=== PATIENT | female | born 1975 | race Caucasian/White ===

== ENCOUNTER 2021-12-14 12:03 | Day surgery (SDC) | payer MEDICARE ==
[2021-12-14] MEDS: Lactated Ringers 1,000 ML IV SCH ×2 (12:30→21:08)
[2021-12-14] MEDS ORDERED: CLINDAMYCIN-D5W 900 MG/50 ML*** 900 MG/50 ML BAG IV SCH (12:30)
[2021-12-14 12:43] LABS: ALBUMIN 3.1 g/dL (3.5-5.0); ALKALINE PHOSPHATASE 75 U/L (38-126); ANION GAP 9.5 MEQ/L (5-15); BLOOD UREA NITROGEN 14 mg/dL (7-17); CHLORIDE 108 mmol/L (98-107); Calcium 8.4 mg/dL (8.4-10.2); Carbon Dioxide 26 mmol/L (22-30); Creatinine 1 0.68 mg/dL (0.52-1.04); EST GLOMERULAR FILTRATION RATE > 60.0 ML/MIN; Glucose 72 mg/dL (74-106); Potassium 3.5 mmol/L (3.5-5.1); SGOT/AST 40 U/L (14-36); SGPT/ALT 23 U/L (0-35); SODIUM 139 mmol/L (137-145)
[2021-12-14] MEDS ORDERED: DIPRIVAN 200 MG/20 ML IV ONE (13:00)
[2021-12-14] MEDS ORDERED: Zemuron 100 MG/10 ML ONE ×2 (13:00→15:46)
[2021-12-14] MEDS ORDERED: Versed 2 MG/2 ML Injection ONE (13:00)
[2021-12-14] MEDS ORDERED: Ephedrine Sulfate 50 MG/ML ONE ×2 (13:25→15:44)
[2021-12-14] MEDS ORDERED: Lactated Ringers 1,000 ML IV ONE (13:30)
[2021-12-14] MEDS ORDERED: Naropin 0.5% 30 ML VIAL ONE (16:49)
[2021-12-14] MEDS ORDERED: Marcaine 0.5%/Epinephrine 10 ML ONE (16:49)
[2021-12-14] MEDS ORDERED: Hydromorphone 1 mg/ml Injection ONE (19:20)
[2021-12-14] MEDS ORDERED: SUBLIMAZE 100 MCG/2 ML ONE (19:20)
[2021-12-14] MEDS ORDERED: TORAdol 30 mg Injection ONE (19:49)
[2021-12-15] MEDS: HYDROCODONE-ACETAMIN 10-325 MG PO PRN ×3 (03:10→12:11)
[2021-12-15] MEDS ORDERED: SYNTHROID 125 MCG PO SCH (07:00)
[2021-12-15] MEDS ORDERED: MOTRIN 600 MG PO PRN (07:34)
--- NOTE | 2021-12-15 09:21 | XRAY ---
Indication: Left foot modified Pena procedure, tibialis anterior tendon transfer, and gastrocnemius lengthening. Intraoperative fluoroscopy was provided for 2 minute 46 seconds. 23 digital spot images ultimately demonstrates fusion 1st MTP, 2nd metatarsal head America procedure, and fusion entire 2nd-4th phalanges all with intact hardware. Orthopedic button projects over 1st-2nd tarsometatarsal articulation. Correlate with intraoperative findings/report.
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
[2021-12-15] MEDS ORDERED: KEFLEX 500 MG PO SCH (10:00)
[2021-12-15] MEDS ORDERED: Ecotrin 325 MG PO SCH (10:00)
[2021-12-15] MEDS ORDERED: THERAGRAN MULTIVITAMIN PO SCH (10:00)
[2021-12-15] MEDS ORDERED: NON-FORMULARY ITEM (Multivitamin [Multivitamin] 1 EACH Tablet) PO SCH (10:00)
--- NOTE | 2021-12-15 10:30 | XRAY ---
2 minutes 46 seconds of fluoroscopy was used in surgery for a left foot modified Pena procedure.
[2021-12-15 12:18] VITALS: BP 131/74; O2SAT 98
[2021-12-15 13:19] VITALS: PULSE 75
[2021-12-15] MEDS ORDERED: XANAX 1 MG PO SCH (22:00)
[2021-12-15] MEDS ORDERED: NEURONTIN PO SCH (22:00)
[2021-12-15] MEDS ORDERED: NON-FORMULARY ITEM (Gabapentin [Neurontin] 600 MG Tablet) PO SCH (22:00)
== END 2021-12-15 13:10 | disposition home or self-care (01) ==
LOC: SDC 12:03 → MED SURG 20:11 → SDC 12-15 13:10
PROVIDERS: ATTEND Podiatrist Foot & Ankle Surgery
DX: M19.072 Primary osteoarthritis, left ankle and foot (principal); M21.612 Bunion of left foot; M20.42 Other hammer toe(s) (acquired), left foot; M21.372 Foot drop, left foot; M21.6X2 Other acquired deformities of left foot; M21.172 Varus deformity, not elsewhere classified, left ankle
CPT/HCPCS: 27685; 27691; 28285; 28308; 28750; 36415; 73620; 76000; 76942; 80053; 81025; C1713; 64447; 64450; G0378; J1170; J1885; J2250; J2704; J2795; J3010; A9270-GY